=== PATIENT | female | born 1965 | race Hispanic/Latino ===

== ENCOUNTER 2017-08-10 20:40 | Inpatient (IN) | payer OTHER ==
[2017-08-10 20:40] VITALS: BMI 27.6
[2017-08-10 21:39] LABS: ALB/GLOB RATIO 1.1 (1.0-2.1); ALKALINE PHOSPHATASE 191 U/L (38-126); ALT/SGPT 32 U/L (9-52); AST/SGOT 28 U/L (14-36); BILIRUBIN,TOTAL 0.3 mg/dl (0.2-1.3); BLOOD UREA NITROGEN 12 mg/dl (7-17); CALCIUM 8.9 mg/dL (8.4-10.2); CARBON DIOXIDE 29 mmol/L (22-30); CHLORIDE 105 mmol/L (98-107); GFR AFRICAN-AMERICAN > 60; GLUCOSE,RANDOM 118 mg/dL (65-105); POTASSIUM 4.1 MMOL/L (3.6-5.0); SODIUM 143 mmol/l (132-148); TOTAL PROTEIN 8.2 G/DL (6.3-8.2)
[2017-08-10 21:57] LABS: RBC URINE 8 /hpf (0-3); URINE BACTERIA RARE (<OCC); URINE BILIRUBIN NEGATIVE (NEGATIVE); URINE BLOOD SMALL (NEGATIVE); URINE COLOR COLORLESS (YELLOW); URINE GLUCOSE (UA) NEG (Normal); URINE KETONE NEGATIVE (NEGATIVE); URINE LEUKOCYTE ESTERASE TRACE Leu/uL (Negative); URINE PROTEIN NEGATIVE (NEGATIVE); URINE UROBILINOGEN 0.2-1.0 mg/dL (0.2-1.0); WBC URINE 1 /hpf (0-5)
[2017-08-10 22:30] LABS: BASO % 0.6 % (0.0-2.0); EOS # 0.1 K/uL (0.0-0.7); EOS % 1.8 % (0.0-4.0); HEMATOCRIT 45.3 % (34.0-47.0); LYMPH # 2.7 K/uL (1.0-4.3); LYMPH % 35.1 % (20.0-40.0); MEAN CELL VOLUME 90.4 fl (81.0-99.0); MEAN CORPUSCULAR HEMOGLOBIN 30.5 pg (27.0-31.0); MEAN CORPUSCULAR HGB CONC 33.8 g/dL (33.0-37.0); MEAN PLATELET VOLUME 10.7 fl (7.2-11.7); MONO # 0.6 K/uL (0.0-0.8); MONO % 8.4 % (0.0-10.0); NEUT # 4.1 K/uL (1.8-7.0); NEUT % 54.1 % (50.0-75.0); NRBC % 0.6 % (0.0-0.0); RED CELL DISTRIBUTION WIDTH 12.7 % (11.5-14.5); WHITE BLOOD COUNT 7.6 K/uL (4.8-10.8)
--- NOTE | 2017-08-10 23:13 | ED PDOC ---
HPI: Chest Pain Time Seen by Provider: 08/10/17 20:40 Chief Complaint (Nursing): Chest Pain Chief Complaint (Provider): Chest Palpitations History Per: Patient History/Exam Limitations: no limitations Onset/Duration Of Symptoms: Hrs (2 hours) Current Symptoms Are (Timing): Still Present Additional Complaint(s): Pia is a 52 year old female with a past medical history of HIV and hypertension who presents to the emergency department complaining of palpitations for several hours. Patient states she had similar episodes before and was persistent. Takes antiviral medicine. Denies shortness of breath, fever and vomiting. PMD: Blanca De Leon Past Medical History Reviewed: Historical Data, Nursing Documentation, Vital Signs Vital Signs: Last Vital Signs Temp 97.8 F 08/12/17 00:32 Pulse 78 08/12/17 00:32 Resp 18 08/12/17 00:32 BP 109/73 08/12/17 00:32 Pulse Ox 95 08/12/17 00:32 - Medical History PMH: Anemia, HIV, HTN Denies: Chronic Kidney Disease - Surgical History Surgical History: Tonsillectomy, Other surgeries: Hysterectomy, Orthopedic Surgery - Family History Family History: States: Unknown Family Hx - Living Arrangements Living Arrangements: With Family - Social History Current smoker - smoking cessation education provided: No Alcohol: None Drugs: Denies - Home Medications Home Medications: Ambulatory Orders Medication Instructions Recorded Lisinopril 40 mg PO HS 01/12/15 Elviteg/Charis/Emtric/Tenofo Dis 1 each PO DAILY 08/10/17 [Stribild Tablet] - Allergies Allergies/Adverse Reactions: Allergies Allergy/AdvReac Type Severity Reaction Status Date / Time acetaminophen [From Vicodin] Allergy RASH Verified 08/10/17 20:55 celecoxib [From Celebrex] Allergy RASH Verified 08/10/17 20:55 hydrocodone [From Vicodin] Allergy RASH Verified 08/10/17 20:55 Review of Systems ROS Statement: Except As Marked, All Systems Reviewed And Found Negative Constitutional: Negative for: Fever Cardiovascular: Positive for: Palpitations Respiratory: Negative for: Shortness of Breath Gastrointestinal: Negative for: Vomiting Physical Exam - Reviewed Nursing Documentation Reviewed: Yes Vital Signs Reviewed: Yes - Physical Exam Appears: Positive for: Non-toxic, No Acute Distress Head Exam: Positive for: ATRAUMATIC, NORMOCEPHALIC Skin: Positive for: Normal Color, Warm, Dry Eye Exam: Positive for: Normal appearance, EOMI, PERRL Neck: Positive for: Normal, Painless ROM, Supple Cardiovascular/Chest: Positive for: Regular Rate, Rhythm. Negative for: Murmur Respiratory: Positive for: Normal Breath Sounds. Negative for: Respiratory Distress Gastrointestinal/Abdominal: Positive for: Normal Exam, Soft. Negative for: Tenderness Back: Positive for: Normal Inspection Extremity: Positive for: Normal ROM. Negative for: Pedal Edema, Deformity Neurologic/Psych: Positive for: Alert, Oriented. Negative for: Motor/Sensory Deficits - Laboratory Results Result Diagrams: 08/10/17 22:00 08/10/17 21:24 - ECG O2 Sat by Pulse Oximetry: 96 (RA) Pulse Ox Interpretation: Normal Medical Decision Making Medical Decision Making: Time: 21:08 Impression: palpitations Rapid Atrial Fibrillation Differential: Rule Out: , A-Fibrillation, Myocardial Infarction Plan: --Chest Xray --DiltiaZem 10 mg IVP --Urine Culture Reassess: Time: 11:14 Patient to be admitted to physician regional company truck driver, Dr. Dipti MD. pt agreeable. cardiology consult ordered Scribe Attestation: Documented by John Haromn, acting as a scribe for Tavia Guzmán MD. Provider Scribe Attestation: All medical record entries made by the Scribe were at my direction and personally dictated by me. I have reviewed the chart and agree that the record accurately reflects my personal performance of the history, physical exam, medical decision making, and the department course for this patient. I have also personally directed, reviewed, and agree with the discharge instructions and disposition. Disposition - Clinical Impression Clinical Impression: Rapid atrial fibrillation - Patient ED Disposition Is Patient to be Admitted: Yes (Patient to be admitted to physician regional company truck driver, Dr. Dipti MD.) Counseled Patient/Family Regarding: Studies Performed, Diagnosis, Need For Followup - Disposition Disposition: Routine/Home Disposition Time: 22:00 Condition: STABLE
--- NOTE | 2017-08-11 07:43 | CP.PCM.CON ---
History of Present Illness - History of Present Illness History of Present Illness: Pia is a 52 year old female with a past medical history of HIV and hypertension who presents to the emergency department complaining of palpitations for several hours. Patient states she had similar episodes before and was persistent. Takes antiviral medicine. Denies shortness of breath, fever and vomiting. 52 year old female with PMH of HIV, HTN, Anemia, presented with complaints of palpitations, found to be in atrial fibrillation with RVR. She has no history of cardiac disease. She follows up with Dr. Caldwell for her HIV care. There have been no recent changes in her medications. HR this morning remained elevated in afib, she was given dose of cardizem. She was started on metoprolol 50mg q12. Patient is still in afib, HR 90s after cardizem. PMH: HIV, Anemia, HTN Troponin: neg Echo: normal EF: 65 - 70% Past Patient History - Past Medical History & Family History Past Medical History?: Yes - Past Social History Smoking Status: Never Smoked - CARDIAC Hx Cardiac Disorders: Yes Hx Hypertension: Yes - PULMONARY Hx Respiratory Disorders: No - NEUROLOGICAL Hx Neurological Disorder: No - HEENT Hx HEENT Problems: No - RENAL Hx Chronic Kidney Disease: No - ENDOCRINE/METABOLIC Hx Endocrine Disorders: No - HEMATOLOGICAL/ONCOLOGICAL Hx Blood Disorders: Yes Hx AIDS: No Hx Anemia: Yes Hx Human Immunodeficiency Virus (HIV): Yes - INTEGUMENTARY Hx Dermatological Problems: No - MUSCULOSKELETAL/RHEUMATOLOGICAL Hx Musculoskeletal Disorders: No Hx Falls: No - GASTROINTESTINAL Hx Gastrointestinal Disorders: No - GENITOURINARY/GYNECOLOGICAL Hx Genitourinary Disorders: No - PSYCHIATRIC Hx Psychophysiologic Disorder: No Hx Substance Use: No - SURGICAL HISTORY Hx Surgeries: Yes Hx Orthopedic Surgery: Yes (left femur) Hx Tonsillectomy: Yes - ANESTHESIA Hx Anesthesia: Yes Hx Anesthesia Reactions: No Hx Malignant Hyperthermia: No Meds Allergies/Adverse Reactions: Allergies Allergy/AdvReac Type Severity Reaction Status Date / Time acetaminophen [From Vicodin] Allergy RASH Verified 08/10/17 20:55 celecoxib [From Celebrex] Allergy RASH Verified 08/10/17 20:55 hydrocodone [From Vicodin] Allergy RASH Verified 08/10/17 20:55 - Medications Medications: Current Medications Enoxaparin Sodium (Lovenox) 70 mg SC Q12 RADHA PRN Reason: Protocol Home Med (Elviteg/Charis/Emtric/Tenofo Dis [Stribild Tablet]) 1 each PO DAILY [facility] Metoprolol Tartrate (Lopressor) 50 mg PO Q12 RADHA Last Admin: 08/11/17 07:28 Dose: 50 mg Physical Exam - Constitutional Appears: Well - Head Exam Head Exam: ATRAUMATIC - Eye Exam Eye Exam: Normal appearance - ENT Exam ENT Exam: Normal Exam - Respiratory Exam Respiratory Exam: NORMAL BREATHING PATTERN - Cardiovascular Exam Cardiovascular Exam: Irregular Rhythm Results - Vital Signs Recent Vital Signs: Last Vital Signs Temp 97.5 F L 08/11/17 02:36 Pulse 139 H 08/11/17 07:28 Resp 18 08/11/17 02:48 BP 111/73 08/11/17 07:28 Pulse Ox 97 08/11/17 02:36 - Labs Result Diagrams: 08/10/17 22:00 08/10/17 21:24 Labs: Laboratory Results - last 24 hr 08/10/17 08/10/17 08/10/17 21:24 21:24 22:00 WBC 7.6 D RBC 5.02 Hgb 15.3 Hct 45.3 MCV 90.4 MCH 30.5 MCHC 33.8 RDW 12.7 Plt Count 194 D MPV 10.7 Neut % (Auto) 54.1 Lymph % (Auto) 35.1 [place] % (Auto) 8.4 Eos % (Auto) 1.8 Baso % (Auto) 0.6 Neut # 4.1 Lymph # 2.7 [place] # 0.6 Eos # 0.1 Baso # 0.0 Sodium 143 Potassium 4.1 Chloride 105 Carbon Dioxide 29 Anion Gap 13 BUN 12 Creatinine 0.7 Est GFR ( Amer) > 60 Est GFR (Non-Af Amer) > 60 Random Glucose 118 H Calcium 8.9 Total Bilirubin 0.3 AST 28 ALT 32 Alkaline Phosphatase 191 H Troponin I < 0.0120 Total Protein 8.2 Albumin 4.3 Globulin 3.9 Albumin/Globulin Ratio 1.1 Urine Color Colorless Urine Clarity Clear Urine pH 7.0 Ur Specific [place] < 1.005 Urine Protein Negative Urine Glucose (UA) Neg Urine Ketones Negative Urine Blood Small Urine Nitrate Negative Urine Bilirubin Negative Urine Urobilinogen 0.2-1.0 Ur Leukocyte Esterase Trace Urine RBC (Auto) 8 H Urine Microscopic WBC 1 Ur Squamous Epith Cells 3 Urine Bacteria Rare Assessment & Plan (1) Atrial fibrillation with RVR Assessment and Plan: Hr is controlled at present will continue to observe Status: Acute (2) HIV (human immunodeficiency virus infection) Status: Chronic (3) HTN (hypertension) Status: Chronic
[2017-08-11] MEDS: Enoxaparin 80 mg Syringe SC SCH ×2 (07:58→21:15)
[2017-08-11 08:19] LABS: CHOLESTEROL 192 mg/dL (0-199)
--- NOTE | 2017-08-11 08:21 | CARD ---
APPROVED REPORT EKG Measurement Heart [id number] <Conclusion> Atrial fibrillation with rapid ventricular response Abnormal ECG
--- NOTE | 2017-08-11 08:25 | CARD ---
APPROVED REPORT EKG Measurement Heart [id number] <Conclusion> Atrial fibrillation with rapid ventricular response Abnormal ECG
[2017-08-11 08:52] LABS: THYROID STIMULATING HORMONE 4.11 mIU/ML (0.46-4.68)
[2017-08-11] MEDS ORDERED: [UNRECOGNIZED DRUG - OTHER] PO SCH (09:00)
[2017-08-11] MEDS ORDERED: Enoxaparin 40 mg Syringe SC SCH (09:00)
[2017-08-11] MEDS ORDERED: Perflutren Lipid Microsphere 1.5 ML SUS IV ONE (09:48)
--- NOTE | 2017-08-11 10:05 | RAD ---
HISTORY: rapid atrial fibrillation COMPARISON: No prior. FINDINGS: LUNGS: Focal left basilar opacity. PLEURA: No significant pleural effusion identified, no pneumothorax apparent. CARDIOVASCULAR: Normal. OSSEOUS STRUCTURES: No significant abnormalities. VISUALIZED UPPER ABDOMEN: Normal. OTHER FINDINGS: None. IMPRESSION: Focal left basilar atelectasis versus infiltrate.
--- NOTE | 2017-08-11 10:44 | CP.PCM.HP ---
History of Present Illness - History of Present Illness History of Present Illness: Patient seen and examined with Dr. Resendez. 52 year old female with PMH of HIV, HTN, Anemia, presented with complaints of palpitations, found to be in atrial fibrillation with RVR. 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 She follows up with Dr. Caldwell for her HIV care. She was fired from her job the day prior to presenting symptoms. There have been no recent changes in her medications. She can only recall that since she is moving, she has been up and down in her apt, carrying things. This morning she is feeling better. HR this morning remained elevated in afib, she was given dose of cardizem. She was started on metoprolol 50mg q12. Patient is still in afib, HR 90s after cardizem. PMD: Dr. Caldwell PMH: HIV, Anemia, HTN Medications: reviewed Allergies: reviewed. Social: no etoh, smoking,illicit drugs Present on Admission - Present on Admission Any Indicators Present on Admission: No Past Patient History - Past Medical History & Family History Past Medical History?: Yes - Past Social History Smoking Status: Never Smoked - CARDIAC Hx Cardiac Disorders: Yes Hx Hypertension: Yes - PULMONARY Hx Respiratory Disorders: No - NEUROLOGICAL Hx Neurological Disorder: No - HEENT Hx HEENT Problems: No - RENAL Hx Chronic Kidney Disease: No - ENDOCRINE/METABOLIC Hx Endocrine Disorders: No - HEMATOLOGICAL/ONCOLOGICAL Hx Blood Disorders: Yes Hx AIDS: No Hx Anemia: Yes Hx Human Immunodeficiency Virus (HIV): Yes - INTEGUMENTARY Hx Dermatological Problems: No - MUSCULOSKELETAL/RHEUMATOLOGICAL Hx Musculoskeletal Disorders: No Hx Falls: No - GASTROINTESTINAL Hx Gastrointestinal Disorders: No - GENITOURINARY/GYNECOLOGICAL Hx Genitourinary Disorders: No - PSYCHIATRIC Hx Psychophysiologic Disorder: No Hx Substance Use: No - SURGICAL HISTORY Hx Surgeries: Yes Hx Orthopedic Surgery: Yes (left femur) Hx Tonsillectomy: Yes - ANESTHESIA Hx Anesthesia: Yes Hx Anesthesia Reactions: No Hx Malignant Hyperthermia: No Meds Allergies/Adverse Reactions: Allergies Allergy/AdvReac Type Severity Reaction Status Date / Time acetaminophen [From Vicodin] Allergy RASH Verified 08/10/17 20:55 celecoxib [From Celebrex] Allergy RASH Verified 08/10/17 20:55 hydrocodone [From Vicodin] Allergy RASH Verified 08/10/17 20:55 Physical Exam - Constitutional Appears: No Acute Distress - Head Exam Head Exam: ATRAUMATIC, NORMAL INSPECTION, NORMOCEPHALIC - Eye Exam Eye Exam: EOMI, Normal appearance, PERRL - ENT Exam ENT Exam: Mucous Membranes Moist, Normal Exam - Respiratory Exam Respiratory Exam: Clear to Auscultation Bilateral, NORMAL BREATHING PATTERN - Cardiovascular Exam Cardiovascular Exam: Irregular Rhythm, +S1, +S2. absent: Bradycardia, Tachycardia - GI/Abdominal Exam GI & Abdominal Exam: Soft. absent: Distended, Tenderness - Extremities Exam Extremities exam: Negative for: pedal edema - Neurological Exam Neurological exam: Alert, CN II-XII Intact, Oriented x3 - Psychiatric Exam Psychiatric exam: Normal Affect, Normal Mood - Skin Skin Exam: Dry, Intact, Normal Color, Warm Results - Vital Signs Recent Vital Signs: Last Vital Signs Temp 97.4 F L 08/11/17 08:24 Pulse 88 08/11/17 08:24 Resp 18 08/11/17 08:24 BP 111/73 08/11/17 08:24 Pulse Ox 97 08/11/17 08:24 - Labs Result Diagrams: 08/10/17 22:00 08/10/17 21:24 Labs: Laboratory Results - last 24 hr 08/10/17 08/10/17 08/10/17 21:24 21:24 22:00 WBC 7.6 D RBC 5.02 Hgb 15.3 Hct 45.3 MCV 90.4 MCH 30.5 MCHC 33.8 RDW 12.7 Plt Count 194 D MPV 10.7 Neut % (Auto) 54.1 Lymph % (Auto) 35.1 [place] % (Auto) 8.4 Eos % (Auto) 1.8 Baso % (Auto) 0.6 Neut # 4.1 Lymph # 2.7 [place] # 0.6 Eos # 0.1 Baso # 0.0 Sodium 143 Potassium 4.1 Chloride 105 Carbon Dioxide 29 Anion Gap 13 BUN 12 Creatinine 0.7 Est GFR ( Amer) > 60 Est GFR (Non-Af Amer) > 60 Random Glucose 118 H Calcium 8.9 Total Bilirubin 0.3 AST 28 ALT 32 Alkaline Phosphatase 191 H Troponin I < 0.0120 Total Protein 8.2 Albumin 4.3 Globulin 3.9 Albumin/Globulin Ratio 1.1 Triglycerides Cholesterol LDL Cholesterol Direct HDL Cholesterol Thyroxine (T4) Total T3 TSH 3rd Generation Urine Color Colorless Urine Clarity Clear Urine pH 7.0 Ur Specific [place] < 1.005 Urine Protein Negative Urine Glucose (UA) Neg Urine Ketones Negative Urine Blood Small Urine Nitrate Negative Urine Bilirubin Negative Urine Urobilinogen 0.2-1.0 Ur Leukocyte Esterase Trace Urine RBC (Auto) 8 H Urine Microscopic WBC 1 Ur Squamous Epith Cells 3 Urine Bacteria Rare 08/11/17 07:45 WBC RBC Hgb Hct MCV MCH MCHC RDW Plt Count MPV Neut % (Auto) Lymph % (Auto) [place] % (Auto) Eos % (Auto) Baso % (Auto) Neut # Lymph # [place] # Eos # Baso # Sodium Potassium Chloride Carbon Dioxide Anion Gap BUN Creatinine Est GFR ( Amer) Est GFR (Non-Af Amer) Random Glucose Calcium Total Bilirubin AST ALT Alkaline Phosphatase Troponin I < 0.0120 Total Protein Albumin Globulin Albumin/Globulin Ratio Triglycerides 189 H Cholesterol 192 LDL Cholesterol Direct 89 HDL Cholesterol 62 Thyroxine (T4) 7.30 Total T3 2.64 H TSH 3rd Generation 4.11 Urine Color Urine Clarity Urine pH Ur Specific [place] Urine Protein Urine Glucose (UA) Urine Ketones Urine Blood Urine Nitrate Urine Bilirubin Urine Urobilinogen Ur Leukocyte Esterase Urine RBC (Auto) Urine Microscopic WBC Ur Squamous Epith Cells Urine Bacteria Assessment & Plan (1) Atrial fibrillation with RVR Assessment and Plan: 2 year old female with PMH of HIV, HTN presented with complaints of palpitations , found to have atrial fibrillation with RVR. lunchroom monitor reveals patient is still in afib, HR now in 90s after cardizem. Cardiology to see and evaluate patient. Echo done, pending report #Atrial fibrillation #HTN #DVT Prophylaxis -cardio consult -will start digoxin -f/u echo results -HTN controlled -Lovenox for DVT ppx -resume HIV medications Status: Acute (2) HTN (hypertension) Status: Chronic (3) DVT prophylaxis Status: Acute
--- NOTE | 2017-08-11 11:44 | CARD ---
APPROVED REPORT EXAM: Two-dimensional and M-mode echocardiogram with Doppler, color Doppler with contrast. Other Information Quality : GoodRhythm : Atrial Fibrillation INDICATION Atrial Fibrillation Echo Enhancing Agent Indication: Endocardial border delineation Agent/Amount Used: Definity 2D DIMENSIONS IVSd1.14 (0.7-1.1cm)LVDd3.88 (3.9-5.9cm) LVOT Diameter2.12 (1.8-2.4cm)PWd1.14 (0.7-1.1cm) IVSs1.81 (0.8-1.2cm)LVDs2.52 (2.5-4.0cm) FS (%) 35.0 %PWs1.38 (0.8-1.2cm) M-Mode DIMENSIONS Left Atrium (MM)3.50 (2.5-4.0cm)IVSd1.26 (0.7-1.1cm) Aortic Root2.82 (2.2-3.7cm)LVDd3.94 (4.0-5.6cm) Aortic Cusp Exc.2.06 (1.5-2.0cm)PWd1.09 (0.7-1.1cm) IVSs1.47 cmFS (%) 38 % LVDs2.44 (2.0-3.8cm)PWs1.15 cm Mitral Valve E/A ratio0.0 TDI E/Lateral E'0.0E/Medial E'0.0 LEFT VENTRICLE The left ventricle is normal size. There is normal left ventricular wall thickness. Left ventricle systolic function is normal. The Ejection Fraction is 65-70%. There is normal LV segmental wall motion. Could not be assesed due to A Fib. RIGHT VENTRICLE The right ventricle is normal size. There is normal right ventricular wall thickness. The right ventricular systolic function is normal. ATRIA The left atrium size is normal. The right atrium size is normal. AORTIC VALVE The aortic valve is normal in structure. No aortic regurgitation is present. There is no aortic valvular stenosis. MITRAL VALVE The mitral valve is normal in structure. There is no evidence of mitral valve prolapse. There is no mitral valve stenosis. There is no mitral valve regurgitation noted. TRICUSPID VALVE The tricuspid valve is normal in structure. There is no tricuspid valve regurgitation noted. PULMONIC VALVE The pulmonary valve is normal in structure. There is no pulmonic valvular regurgitation. GREAT VESSELS The aortic root is normal in size. The IVC was not visualized. PERICARDIAL EFFUSION The pericardium appears normal. <Conclusion> Pt was given echo contrast to identify endocardial surfave and asses LV segmental wall motion. The left ventricle is normal size. There is normal left ventricular wall thickness. There is normal LV segmental wall motion. Left ventricle systolic function is normal. The Ejection Fraction is 65-70%.
[2017-08-11] MEDS ORDERED: Digoxin 250 mcg (0.25 mg) Tab PO ONE (13:01)
[2017-08-11 13:37] VITALS: PULSE 89
[2017-08-12 00:33] VITALS: RESP 18
[2017-08-12 08:19] VITALS: BP 114/72; PULSE 70; TEMP 98.3; O2SAT 94
[2017-08-12] MEDS: Enoxaparin 80 mg Syringe SC SCH (09:39)
[2017-08-12] MEDS ORDERED: Digoxin 125 mcg (0.125 mg) Tab PO SCH (13:00)
--- NOTE | 2017-08-13 11:24 | CP.PCM.DIS ---
Provider - Provider Date of Admission: 08/11/17 09:56 Attending physician: Tanvir Resendez MD Time Spent in preparation of Discharge (in minutes): 30 Hospital Course - Lab Results Lab Results: Micro Results 08/10/17 21:24 Urine,Clean Catch Urine Culture - Final No Growth (<1,000 CFU/ML) Most Recent Lab Values WBC 7.6 K/uL (4.8-10.8) D 08/10/17 22:00 RBC 5.02 Mil/uL (3.80-5.20) 08/10/17 22:00 Hgb 15.3 g/dL (12.0-16.0) 08/10/17 22:00 Hct 45.3 % (34.0-47.0) 08/10/17 22:00 MCV 90.4 fl (81.0-99.0) 08/10/17 22:00 MCH 30.5 pg (27.0-31.0) 08/10/17 22:00 MCHC 33.8 g/dL (33.0-37.0) 08/10/17 22:00 RDW 12.7 % (11.5-14.5) 08/10/17 22:00 Plt Count 194 K/uL (130-400) D 08/10/17 22:00 MPV 10.7 fl (7.2-11.7) 08/10/17 22:00 Neut % (Auto) 54.1 % (50.0-75.0) 08/10/17 22:00 Lymph % (Auto) 35.1 % (20.0-40.0) 08/10/17 22:00 [place] % (Auto) 8.4 % (0.0-10.0) 08/10/17 22:00 Eos % (Auto) 1.8 % (0.0-4.0) 08/10/17 22:00 Baso % (Auto) 0.6 % (0.0-2.0) 08/10/17 22:00 Neut # 4.1 K/uL (1.8-7.0) 08/10/17 22:00 Lymph # 2.7 K/uL (1.0-4.3) 08/10/17 22:00 [place] # 0.6 K/uL (0.0-0.8) 08/10/17 22:00 Eos # 0.1 K/uL (0.0-0.7) 08/10/17 22:00 Baso # 0.0 K/uL (0.0-0.2) 08/10/17 22:00 Sodium 143 mmol/l (132-148) 08/10/17 21:24 Potassium 4.1 MMOL/L (3.6-5.0) 08/10/17 21:24 Chloride 105 mmol/L (98-107) 08/10/17 21:24 Carbon Dioxide 29 mmol/L (22-30) 08/10/17 21:24 Anion Gap 13 (10-20) 08/10/17 21:24 BUN 12 mg/dl (7-17) 08/10/17 21:24 Creatinine 0.7 mg/dl (0.7-1.2) 08/10/17 21:24 Est GFR ( Amer) > 60 08/10/17 21:24 Est GFR (Non-Af Amer) > 60 08/10/17 21:24 Random Glucose 118 mg/dL (65-105) H 08/10/17 21:24 Calcium 8.9 mg/dL (8.4-10.2) 08/10/17 21:24 Total Bilirubin 0.3 mg/dl (0.2-1.3) 08/10/17 21:24 AST 28 U/L (14-36) 08/10/17 21:24 ALT 32 U/L (9-52) 08/10/17 21:24 Alkaline Phosphatase 191 U/L (38-126) H 08/10/17 21:24 Troponin I < 0.0120 ng/mL (0.00-0.120) 08/11/17 12:49 Total Protein 8.2 G/DL (6.3-8.2) 08/10/17 21:24 Albumin 4.3 g/dL (3.5-5.0) 08/10/17 21:24 Globulin 3.9 gm/dL (2.2-3.9) 08/10/17 21:24 Albumin/Globulin Ratio 1.1 (1.0-2.1) 08/10/17 21:24 Triglycerides 189 mg/DL (0-149) H 08/11/17 07:45 Cholesterol 192 mg/dL (0-199) 08/11/17 07:45 LDL Cholesterol Direct 89 mg/dL (0-129) 08/11/17 07:45 HDL Cholesterol 62 MG/DL (30-70) 08/11/17 07:45 Thyroxine (T4) 7.30 ug/dl (5.5-11.0) 08/11/17 07:45 Total T3 2.64 nmol/L (1.49-2.60) H 08/11/17 07:45 TSH 3rd Generation 4.11 mIU/ML (0.46-4.68) 08/11/17 07:45 Urine Color Colorless (YELLOW) 08/10/17 21:24 Urine Clarity Clear (Clear) 08/10/17 21:24 Urine pH 7.0 (5.0-8.0) 08/10/17 21:24 Ur Specific [place] < 1.005 (1.003-1.030) 08/10/17 21:24 Urine Protein Negative mg/dL (NEGATIVE) 08/10/17 21:24 Urine Glucose (UA) Neg mg/dL (Normal) 08/10/17 21:24 Urine Ketones Negative mg/dL (NEGATIVE) 08/10/17 21:24 Urine Blood Small (NEGATIVE) 08/10/17 21:24 Urine Nitrate Negative (NEGATIVE) 08/10/17 21:24 Urine Bilirubin Negative (NEGATIVE) 08/10/17 21:24 Urine Urobilinogen 0.2-1.0 mg/dL (0.2-1.0) 08/10/17 21:24 Ur Leukocyte Esterase Trace [place]/uL (Negative) 08/10/17 21:24 Urine RBC (Auto) 8 /hpf (0-3) H 08/10/17 21:24 Urine Microscopic WBC 1 /hpf (0-5) 08/10/17 21:24 Ur Squamous Epith Cells 3 /hpf (0-5) 08/10/17 21:24 Urine Bacteria Rare (<OCC) 08/10/17 21:24 - Hospital Course Hospital Course: This is a 52 y/0 female admitted for new onset rapid atrial fibrillation. She has a hx of HTN and HIV. She was admitted to telemetry and started on cardizem . Metoprolol and digoxin was started on patient. She responded very well. She was plcaed on eliquis and advised to follow up with [employer] and PMD. Discharge Exam - Head Exam Head Exam: ATRAUMATIC, NORMOCEPHALIC - Eye Exam Eye Exam: Normal appearance - Respiratory Exam Respiratory Exam: NORMAL BREATHING PATTERN - Cardiovascular Exam Cardiovascular Exam: Irregular Rhythm - GI/Abdominal Exam GI & Abdominal Exam: Normal Bowel Sounds - Neurological Exam Neurological exam: CN II-XII Intact, Oriented x3 Discharge Plan - Discharge Medications Prescriptions: Apixaban [Eliquis] 5 mg PO BID #60 tab Digoxin [Lanoxin] 0.125 mg PO DAILY #14 tab Metoprolol Tartrate [Lopressor] 50 mg PO Q12 #30 tab - Follow Up Plan Condition: STABLE Disposition: HOME/ ROUTINE Instructions: Atrial Fibrillation (DC) Additional Instructions: pt. doing well today, denies sob, cp, palpitations pt. cleared for discharge to home today by and Rx for meds given\ pt. will f/u with pmd Dr.De Ledbetter Referrals: Todd De Leon MD [Medical Doctor] -
== END 2017-08-12 13:15 | disposition home or self-care (01) | DRG 310 ==
LOC: H.ER 20:40 → H.ERHOLD 23:11 → H.TEL 08-11 02:13 → OBSVTOIN 08-11 09:56
PROVIDERS: ADMIT Family Medicine; ATTEND Family Medicine
DX: I48.91 Unspecified atrial fibrillation (principal); I10 Essential (primary) hypertension; Z21 Asymptomatic human immunodeficiency virus [HIV] infection status; Z79.899 Other long term (current) drug therapy; Z88.6 Allergy status to analgesic agent